=== PATIENT | female | born 1970 | race Caucasian/White ===

== ENCOUNTER 2017-10-15 21:24 | Inpatient (IN) | payer OTHER ==
[~2017-10-15] VITALS: Ht 152.4 cm; Wt 99.8 kg
[~2017-10-15 21:24] MED LIST: BUSPAR10 MG PO; HYDROCHLOROTHIA25 MG PO; KLONOPIN0.5 M1 PO; LAMICTAL25 MG PO; NORCO 5/3251 TABLET PO; RELAFEN750 MG PO; RISPERDAL1 MG PO; RISPERDAL4 MG PO; TYLENOL REGULA325 MG PO
[2017-10-16 11:49] VITALS: BP 117/59
[2017-10-16 19:27] VITALS: BP 110/74
[2017-10-16 21:11] VITALS: BP 95/57
[2017-10-16 23:30] VITALS: BP 119/58
[2017-10-17 04:19] VITALS: BP 92/58
[2017-10-17 06:06] LABS: HEMATOCRIT 32.2 % (36.0-46.0); MCV 91.5 FL (83-99)
[2017-10-17 06:13] LABS: HEMOGLOBIN 10.8 G/DL (11.9-15.5)
[2017-10-17 06:32] LABS: CHLORIDE 104 MEQ/L (99-109); CREATININE 0.8 MG/DL (0.6-1.3); GFR ESTIMATE (CALCULATED) > 59 mL/min/; GLUCOSE 95 mg/dL (70-99); POTASSIUM 3.4 MEQ/L (3.7-5.4); SODIUM 139 MEQ/L (136-147); UREA NITROGEN (BUN) 16 mg/dL (9-23)
[2017-10-17 08:11] VITALS: BP 93/52
[2017-10-17 11:49] VITALS: BP 107/58
[2017-10-17 15:52] VITALS: BP 99/63
[2017-10-17 20:15] VITALS: BP 109/57
[2017-10-18 00:11] VITALS: BP 110/64
[2017-10-18 04:53] VITALS: BP 112/62
[2017-10-18 06:44] LABS: HEMATOCRIT 31.3 % (36.0-46.0); HEMOGLOBIN 10.5 G/DL (11.9-15.5)
[2017-10-18 08:00] VITALS: BP 118/63
[2017-10-18 12:22] VITALS: BP 125/65
[2017-10-18 13:01] LABS: CHLORIDE 105 MEQ/L (99-109); CREATININE 0.6 MG/DL (0.6-1.3); GFR ESTIMATE (CALCULATED) > 59 mL/min/; GLUCOSE 104 mg/dL (70-99); SODIUM 139 MEQ/L (136-147); UREA NITROGEN (BUN) 9 mg/dL (9-23)
[2017-10-18 13:04] LABS: POTASSIUM 4.2 MEQ/L (3.7-5.4)
[2017-10-18 16:05] VITALS: BP 125/74
[2017-10-18] MEDS ORDERED: OXAYDO5 MG PO (21:30)
[2017-10-18] MEDS ORDERED: CELEBREX200 MG PO (21:31)
[2017-10-18] MEDS ORDERED: ELIQUIS2.5 MG PO (21:32)
[2017-10-18] MEDS ORDERED: SENNA8.6 MG PO (21:35)
[2017-10-18] MEDS ORDERED: ZOFRAN4 MG PO (21:41)
[2017-10-18] MEDS ORDERED: MAALOX ADVANCE355 ML PO (21:42)
[2017-10-18] MEDS ORDERED: OXYCODONE HCL10 MG PO (21:43)
[2017-10-18] MEDS ORDERED: SALONPAS PATCH1 EAC1 TD (21:45)
[2017-10-18] MEDS ORDERED: MILK OF MAGN PO (21:46)
== END 2017-10-18 17:56 | DRG 470 ==
LOC: ENRESERV 21:24 → 2SOUTH 10-16 09:00 → 3WEST 10-16 19:24
PROVIDERS: Orthopaedic Surgery; Physician Assistant Surgical
PROC: 0SRD0J9 Replacement of Left Knee Joint with Synthetic Substitute, Cemented, Open Approach (ICD-10-PCS; principal; 2017-10-16)
DX: M17.12 Unilateral primary osteoarthritis, left knee (principal); M25.762 Osteophyte, left knee; E87.6 Hypokalemia; Z83.3 Family history of diabetes mellitus; E66.01 Morbid (severe) obesity due to excess calories; Z68.41 Body mass index [BMI] 40.0-44.9, adult
CPT/HCPCS: 80048; 84702; 85014; 85018; C1713; J0131; J1885; J2250; J2405; J2795; J7050

== ENCOUNTER 2017-10-18 10:57 | Inpatient (IN) | payer OTHER ==
[~2017-10-18] VITALS: Ht 152.4 cm; Wt 86.6 kg
[2017-10-18 18:15] VITALS: BP 125/60
[2017-10-18] MEDS ORDERED: OXAYDO5 MG PO (21:30)
[2017-10-18] MEDS ORDERED: CELEBREX200 MG PO (21:31)
[2017-10-18] MEDS ORDERED: ELIQUIS2.5 MG PO (21:32)
[2017-10-18] MEDS ORDERED: SENNA8.6 MG PO (21:35)
[2017-10-18] MEDS ORDERED: ZOFRAN4 MG PO (21:41)
[2017-10-18] MEDS ORDERED: MAALOX ADVANCE355 ML PO (21:42)
[2017-10-18] MEDS ORDERED: OXYCODONE HCL10 MG PO (21:43)
[2017-10-18] MEDS ORDERED: SALONPAS PATCH1 EAC1 TD (21:45)
[2017-10-18] MEDS ORDERED: MILK OF MAGN PO (21:46)
[2017-10-19 00:27] VITALS: BP 104/59
[2017-10-19 05:24] VITALS: BP 117/63
[2017-10-19 06:09] LABS: HEMATOCRIT 31.1 % (36.0-46.0); MCHC 33.4 G/DL (30.0-36.0); MCV 92.6 FL (83-99); MEAN PLAT.VOLUME 9.9 uM^3 (9.5-12.4); PLATELET COUNT 230 K/uL (156-360); RBC DIS.WIDTH-CV 13.2 % (11.8-14.6); RBC DIS.WIDTH-SD 44.8 % (39-53); WHITE BLOOD COUNT 7.9 K/uL (4.1-10.2)
[2017-10-19 06:13] LABS: RED BLOOD COUNT 3.36 M/uL (3.80-5.20)
[2017-10-19 06:42] LABS: ALKALINE PHOSPHATASE 44 IU/L (3-129); ANION GAP 7 MEQ/L (2-14); CHLORIDE 101 MEQ/L (99-109); GFR ESTIMATE (CALCULATED) > 59 mL/min/; GLUCOSE 108 mg/dL (70-99); SAMPLE HEMOLYSIS CHECK 0; SAMPLE ICTERIC CHECK 0; SAMPLE LIPEMIA CHECK 0; SODIUM 137 MEQ/L (136-147); TOTAL BILIRUBIN 1.6 MG/DL (0.0-1.0); UREA NITROGEN (BUN) 7 mg/dL (9-23)
[2017-10-19 15:49] VITALS: BP 105/56
[2017-10-20 05:50] VITALS: BP 115/62
[2017-10-20] MEDS ORDERED: SENNA PLUS TAB1 EACH PO (13:56)
[2017-10-20] MEDS ORDERED: OXYCODONE HCL5 MG PO (13:56)
[2017-10-20] MEDS ORDERED: ELIQUIS2.5 MG PO (13:56)
[2017-10-20] MEDS ORDERED: CELEBREX200 MG PO (13:57)
== END 2017-10-20 15:17 | DRG 554 ==
LOC: 3WEST 10:57 → ENPENDDIS 10-20 → 3WEST 10-20 15:17
PROVIDERS: Physical Medicine & Rehabilitation Pain Medicine
PROC: F07M7ZZ Manual Therapy Techniques Treatment of Musculoskeletal System - Whole Body (ICD-10-PCS; principal; 2017-10-18)
DX: M17.12 Unilateral primary osteoarthritis, left knee (principal); G89.18 Other acute postprocedural pain; Z96.652 Presence of left artificial knee joint; D62 Acute posthemorrhagic anemia; I10 Essential (primary) hypertension; E87.6 Hypokalemia; M25.519 Pain in unspecified shoulder; E66.9 Obesity, unspecified; F31.9 Bipolar disorder, unspecified; F41.9 Anxiety disorder, unspecified; Z68.37 Body mass index [BMI] 37.0-37.9, adult; Z83.3 Family history of diabetes mellitus
CPT/HCPCS: 80053; 85027; 97110 GO; 97530 GP

== ENCOUNTER 2017-10-25 16:11 | Emergency (ER) | payer OTHER ==
[~2017-10-25] VITALS: Ht 152.4 cm; Wt 97.8 kg
[~2017-10-25 16:11] MED LIST changes: +CELEBREX200 MG PO; +ELIQUIS2.5 MG PO; +MAALOX ADVANCE355 ML PO; +MILK OF MAGN PO; +OXAYDO5 MG PO; +OXYCODONE HCL10 MG PO; +OXYCODONE HCL5 MG PO; +SALONPAS PATCH1 EAC1 TD; +SENNA PLUS TAB1 EACH PO; +SENNA8.6 MG PO; +ZOFRAN4 MG PO
[2017-10-25 17:49] VITALS: BP 125/77
== END 2017-10-25 17:45 | disposition home or self-care (01) ==
LOC: EME 16:11
DX: M25.562 Pain in left knee (principal); Z98.890 Other specified postprocedural states; Z96.652 Presence of left artificial knee joint; Z88.8 Allergy status to other drugs, medicaments and biological substances
CPT/HCPCS: 99281; 99284